=== PATIENT | male | born 1955 | race Caucasian/White ===

== ENCOUNTER 2023-11-28 03:13 | Observation (INO) | payer MEDICARE ==
[2023-11-28] MEDS: NITROGLYCERIN SL TABS 0.4 MG TAB SUBLINGUAL STA (03:31)
[2023-11-28] MEDS: SODIUM CHLORIDE 0.9% 1,000 ML IV STA (03:31)
--- NOTE | 2023-11-28 03:36 | ED ---
General Adult HPI - General Chief complaint: Chest Pain Stated complaint: Chest pain Time Seen by Provider: 11/28/23 03:17 Source: patient, RN notes reviewed, old records reviewed Mode of arrival: EMS Limitations: no limitations - History of Present Illness Initial comments: Patient is a 68-year-old male who presents emergency department with chest pain. Pain began yesterday morning but did improve throughout the day. Awoke and the pain seemed to have gotten worse again. States it is over the left side of his chest and describes as a pressure sensation. Denies radiation, diaphoresis, nausea or vomiting. Denies shortness of breath. Called EMS as the pain got worse this evening. Was given 124 mg of aspirin as well as a nitroglycerin tablet which seemed to help with the pain. States that is currently 1-2 out of 10 at this time. Presents for further evaluation. History of cardiac cath but no stents. History of hypertension and hyperlipidemia. Also history of skin cancer.Has no recent cardiac catheterizations, stating that most recent was probably 8 years ago - Related Data Home Medications Medication Instructions Recorded Confirmed Aspirin EC [Ecotrin Low Dose] 81 mg PO QAM 08/11/16 08/11/16 Cetirizine HCl [Zyrtec] 10 mg PO DAILY 08/11/16 08/11/16 Fluticasone Nasal [place] [Flonase 1 spray EA NOSTRIL DAILY 08/11/16 08/11/16 Nasal [place]] [place]-3 Fatty Acids/Fish Oil [Fish 1 cap PO HS 08/11/16 08/11/16 Oil 1,000 mg Softgel] Omeprazole 20 mg PO DAILY PRN 08/11/16 08/11/16 lisinopriL [Zestril] 10 mg PO HS 08/11/16 08/11/16 Previous Rx's Medication Instructions Recorded Albuterol Inhaler [Ventolin Hfa 1 - 2 puff INHALATION Q6HR PRN #1 08/12/16 Inhaler] inhaler Budesonide-Formot 160-4.5 Mcg 2 puff INHALATION BID #1 inhaler 08/12/16 [Symbicort 160-4.5 Mcg Inhaler] Allergies Allergy/AdvReac Type Severity Reaction Status Date / Time Decongestants AdvReac shaking Uncoded 08/11/16 14:46 Review of Systems ROS Statement: Those systems with pertinent positive or pertinent negative responses have been documented in the HPI. Review of Systems: CONST: Denies fever EYES: Denies blurry vision ENT: Denies nasal congestion C/V: Endorses chest pain RESP: Denies shortness of breath GI: Denies abdominal pain : Denies dysuria SKIN: Denies rash. MSK: Denies joint pain. NEURO: Denies headache ROS Other: All systems not noted in ROS Statement are negative. Past Medical History Past Medical History: Cancer, Chest Pain / Angina, GERD/Reflux, Hyperlipidemia, Hypertension, Pneumonia Additional Past Medical History / Comment(s): BASAL CELL SKIN CANCER REMOVED FROM RT LOWERE EYELID, HYPOGLYCEMEIA-TRIES TO EAT EVERY 3 HOURS, STRESS TTEST , GOUT, "OCC HAND TREMORS", KIDNEY STONE, SINUSITIS. History of Any Multi-Drug Resistant Organisms: None Reported Past Surgical History: Hernia Repair Additional Past Surgical History / Comment(s): EXCISION BASAL CELL SKIN CA RT LOWER EYE LID, RT INGUINAL HERNIA, VASECTOMY, EGD/COLONOSCOPY(POLYP REMOVED WAS BENIGN), SEVERAL SEBACEOUS CYSTS REMOVED FROM SCALP. Past Anesthesia/Blood Transfusion Reactions: No Reported Reaction Past Psychological History: No Psychological Hx Reported Smoking Status: Never smoker Past Alcohol Use History: None Reported Past Drug Use History: None Reported - Past Family History Mother Family Medical History: Cancer, Hypertension Additional Family Medical History / Comment(s): IRREG RYTHYM, BREAST, SKIN, LUNG CANCER. Father Family Medical History: Myocardial Infarction ([place]) Additional Family Medical History / Comment(s): [place] AT AGE 39, FROM CANCER AGE 54(THINKS IT WAS STOMACH CANCER) General Exam - General Exam Comments Initial Comments: General: Appears in no acute distress. HEAD: Normal with no signs of head trauma. EYES: PERRLA, EOMI, conjunctiva normal, no discharge. ENT: Hearing grossly intact, normal oropharynx. RESPIRATORY: Clear breath sounds bilaterally. No wheezes, rales, or rhonchi. C/V: Regular rate and rhythm. S1 and S2 auscultated, no edema, peripheral pulses 2+ and intact throughout ABD: Abd is soft, nontender, nondistended EXT: Normal range of motion, no obvious deformity SKIN: No rashes or lesions observed on exposed skin. NEURO: Alert and oriented x 4. Limitations: no limitations Course Vital Signs 11/28/23 11/28/23 11/28/23 03:14 03:19 03:31 Temperature 98.1 F Pulse Rate 58 L 54 L Pulse Rate [ 58 L Optical Glass Wet Inspector ] Respiratory 18 18 Rate Blood Pressure 184/97 162/94 O2 Sat by Pulse 97 96 Oximetry 11/28/23 05:01 Temperature Pulse Rate 56 L Pulse Rate [ Optical Glass Wet Inspector ] Respiratory 18 Rate Blood Pressure 133/80 O2 Sat by Pulse 95 Oximetry Medical Decision Making - Medical Decision Making Was pt. sent in by a medical professional or institution (, PA, FROG SHAKER, urgent care, hospital, or penitentiary...) When possible be specific @ -No Did you speak to anyone other than the patient for history (EMS, parent, family, police, friend...)? What history was obtained from this source @ -No Did you review nursing and triage notes (agree or disagree)? Why? @ -I reviewed and agree with nursing and triage notes Were old charts reviewed (outside hosp., previous admission, EMS record, old EKG, old radiological studies, urgent care reports/EKG's, penitentiary records)? Report findings @ -Old EKG reviewed from August 2016. Patient has chronic T wave inversion in lead III which is redemonstrated on today's EKG. No obvious acute changes. Differential Diagnosis (chest pain, altered mental status, abdominal pain women, abdominal pain men, vaginal bleeding, weakness, fever, dyspnea, syncope, headache, dizziness, GI bleed, back pain, seizure, CVA, palpatations, mental health, musculoskeletal)? @ -Differential Chest Pain: Stable Angina, Unstable Angina, STEMI, NSTEMI Aortic Dissection, Pneumothorax, Musculoskeletal, Esophageal Spasm GERD, Cholecystitis, Pancreatitis, Zoster, this is not meant to be an all-inclusive list. EKG interpreted by me (3pts min.). @ -As above X-rays interpreted by me (1pt min.). @ -Chest x-ray reveals no obvious acute cardiopulmonary process. CT interpreted by me (1pt min.). @ -None done U/S interpreted by me (1pt. min.). @ -None done What testing was considered but not performed or refused? (CT, X-rays, U/S, labs)? Why? @ -None What meds were considered but not given or refused? Why? @ -None Did you discuss the management of the patient with other professionals (professionals i.e. DrNikolay, PA, FROG SHAKER, lab, RT, psych nurse, social professionals, airport utility worker, teacher, health officer, watch case polisher)? Give summary @ -No Was smoking cessation discussed for >3mins.? @ -No Was critical care preformed (if so, how long)? @ -No Were there social determinants of health that impacted care today? How? (Homelessness, low income, unemployed, alcoholism, drug addiction, transportation, low edu. Level, literacy, decrease access to med. care, half-way, rehab)? @ -No Was there de-escalation of care discussed even if they declined (Discuss DNR or withdrawal of care, Hospice)? DNR status @ -No What co-morbidities impacted this encounter? (DM, HTN, Smoking, COPD, CAD, Cancer, CVA, ARF, Chemo, Hep., AIDS, mental health diagnosis, sleep apnea, morbid obesity)? @ -None Was patient admitted / discharged? Hospital course, mention meds given and route, prescriptions, significant lab abnormalities, going to OR and other pertinent info. @ -Based on the patient's presentation and physical exam, presents emergency department with left-sided chest pain. Improved with nitro from EMS. Also already received 324 mg of aspirin. We will obtain cardiac workup. Patient was in agreement this plan. Vital signs within acceptable limits. EKG shows no signs of acute ischemia. Chronic T wave inversion in lead III seen from August 2016. Nitro tablet essentially resolved the patient's chest pain. Patient will be started on Nitropaste. Has a mild headache at this time and will be given Tylenol. Patient given 1 L fluid bolus. Chest x-ray reveals no obvious acute cardiopulmonary process. Laboratory studies remarkable for an undetectable troponin. Remainder the labs unremarkable. On reevaluation, patient remains asymptomatic on the Nitropaste. I did recommend admission as his heart score is moderate. Patient was in agreement with this plan. I spoke with the admitting physician, Dr. Gutierrez of [facility] who accepted the admi ssion. Undiagnosed new problem with uncertain prognosis? @ -No Drug Therapy requiring intensive monitoring for toxicity (Heparin, Nitro, Insulin, Cardizem)? @ -No Were any procedures done? @ -No Diagnosis/symptom? @ -Chest pain Acute, or Chronic, or Acute on Chronic? @ -Acute Uncomplicated (without systemic symptoms) or Complicated (systemic symptoms)? @ -Complicated Side effects of treatment? @ -None Exacerbation, Progression, or Severe Exacerbation] @ -No Poses a threat to life or bodily function? @ -Potentially, yes - Lab Data Result diagrams: 11/28/23 03:30 11/28/23 03:30 Lab Results 11/28/23 11/28/23 11/28/23 Range/Units 03:30 03:30 03:30 WBC 8.4 (3.8-10.6) k/uL RBC 5.23 (4.30-5.90) m/uL Hgb 15.7 (13.0-17.5) gm/dL Hct 46.2 (39.0-53.0) % MCV 88.3 (80.0-100.0) fL MCH 30.0 (25.0-35.0) pg MCHC 34.0 (31.0-37.0) g/dL RDW 13.5 (11.5-15.5) % Plt Count 163 (150-450) k/uL MPV 12.1 Neutrophils % 63 % Lymphocytes % 28 % Monocytes % 6 % Eosinophils % 1 % Basophils % 1 % Neutrophils # 5.3 (1.3-7.7) k/uL Lymphocytes # 2.3 (1.0-4.8) k/uL Monocytes # 0.5 (0-1.0) k/uL Eosinophils # 0.1 (0-0.7) k/uL Basophils # 0.1 (0-0.2) k/uL PT 10.7 (10.0-12.5) sec INR 1.0 (<1.2) APTT 27.0 (22.0-30.0) sec Sodium 138 (137-145) mmol/L Potassium 3.8 (3.5-5.1) mmol/L Chloride 106 (98-107) mmol/L Carbon Dioxide 23 (22-30) mmol/L Anion Gap 9 mmol/L BUN 16 (9-20) mg/dL Creatinine 0.73 (0.66-1.25) mg/dL Est GFR (CKD-EPI)AfAm >90 (>60 ml/min/1.73 sqM) Est GFR (CKD-EPI)NonAf >90 (>60 ml/min/1.73 sqM) Glucose 148 H (74-99) mg/dL Calcium 9.2 (8.4-10.2) mg/dL Magnesium 1.8 (1.6-2.3) mg/dL Total Bilirubin 0.9 (0.2-1.3) mg/dL AST 31 (17-59) U/L ALT 34 (4-49) U/L Alkaline Phosphatase 100 (38-126) U/L Troponin I (0.000-0.034) ng/mL Total Protein 6.9 (6.3-8.2) g/dL Albumin 4.2 (3.5-5.0) g/dL Lipase 144 (23-300) U/L / Range/Units 03:30 WBC (3.8-10.6) k/uL RBC (4.30-5.90) m/uL Hgb (13.0-17.5) gm/dL Hct (39.0-53.0) % MCV (80.0-100.0) fL MCH (25.0-35.0) pg MCHC (31.0-37.0) g/dL RDW (11.5-15.5) % Plt Count (150-450) k/uL MPV Neutrophils % % Lymphocytes % % Monocytes % % Eosinophils % % Basophils % % Neutrophils # (1.3-7.7) k/uL Lymphocytes # (1.0-4.8) k/uL Monocytes # (0-1.0) k/uL Eosinophils # (0-0.7) k/uL Basophils # (0-0.2) k/uL PT (10.0-12.5) sec INR (<1.2) APTT (22.0-30.0) sec Sodium (137-145) mmol/L Potassium (3.5-5.1) mmol/L Chloride (98-107) mmol/L Carbon Dioxide (22-30) mmol/L Anion Gap mmol/L BUN (9-20) mg/dL Creatinine (0.66-1.25) mg/dL Est GFR (CKD-EPI)AfAm (>60 ml/min/1.73 sqM) Est GFR (CKD-EPI)NonAf (>60 ml/min/1.73 sqM) Glucose (74-99) mg/dL Calcium (8.4-10.2) mg/dL Magnesium (1.6-2.3) mg/dL Total Bilirubin (0.2-1.3) mg/dL AST (17-59) U/L ALT (4-49) U/L Alkaline Phosphatase (38-126) U/L Troponin I <0.012 (0.000-0.034) ng/mL Total Protein (6.3-8.2) g/dL Albumin (3.5-5.0) g/dL Lipase (23-300) U/L - EKG Data -: EKG Interpreted by Me EKG Comments: 12-lead Electrocardiogram Interpretation Note EKG was reviewed and interpreted by myself. 12-lead ECG performed at 0324 is interpreted by me as revealing sinus bradycardia at a rate of 55 beats per minute. Left axis deviation. [place] interval is 184 ms, QRS duration is 113 ms, QTc is 435 ms.. There were no ST or T wave abnormalities to suggest myocardial ischemia or injury. R wave progression across the precordium was satisfactory. By my interpretation this EKG is non-diagnostic for acute ischemia. Disposition Clinical Impression: Chest pain Disposition: ADMITTED IP TO THIS HOSP Condition: Stable Time of Disposition: 04:59
[2023-11-28] MEDS: ACETAMINOPHEN TAB 325 MG TAB PO STA (03:54)
[2023-11-28] MEDS: NITROGLYCERIN OINT 1 INCH/GM PACKET TOPICAL SCH (03:55)
[2023-11-28 04:10] LABS: Basophils # (A) 0.1 k/uL (0-0.2); Basophils % (A) 1 %; Eosinophils # (A) 0.1 k/uL (0-0.7); Eosinophils % (A) 1 %; HCT 46.2 % (39.0-53.0); HGB 15.7 gm/dL (13.0-17.5); Lymphocytes # (A) 2.3 k/uL (1.0-4.8); Lymphocytes % (A) 28 %; MCV 88.3 fL (80.0-100.0); Mean Platelet Volume 12.1; Monocytes # (A) 0.5 k/uL (0-1.0); Monocytes % (A) 6 %; Neutrophils # (A) 5.3 k/uL (1.3-7.7); Neutrophils % (A) 63 %; Platelet Count 163 k/uL (150-450); RBC 5.23 m/uL (4.30-5.90); RDW 13.5 % (11.5-15.5); WBC 8.4 k/uL (3.8-10.6)
[2023-11-28 04:20] LABS: ALT 34 U/L (4-49); AST 31 U/L (17-59); African American GFR (CKD) >90 (>60 ml/min/1.73 sqM); Albumin 4.2 g/dL (3.5-5.0); Alkaline Phosphatase 100 U/L (38-126); Anion Gap 9 mmol/L; Blood Urea Nitrogen 16 mg/dL (9-20); Calcium 9.2 mg/dL (8.4-10.2); Carbon Dioxide 23 mmol/L (22-30); Chloride 106 mmol/L (98-107); Glucose 148 mg/dL (74-99); Lipase 144 U/L (23-300); Magnesium 1.8 mg/dL (1.6-2.3); Non-African American GFR(CKD) >90 (>60 ml/min/1.73 sqM); Potassium 3.8 mmol/L (3.5-5.1); Sodium 138 mmol/L (137-145); Total Bilirubin 0.9 mg/dL (0.2-1.3); Total Protein 6.9 g/dL (6.3-8.2)
[2023-11-28 04:35] LABS: Prothrombin Time 10.7 sec (10.0-12.5)
--- NOTE | 2023-11-28 04:46 | XR ---
EXAMINATION TYPE: XR chest 2V DATE OF EXAM: 11/28/2023 COMPARISON: Chest x-ray August 11, 2016. HISTORY: Chest pain TECHNIQUE: Frontal and lateral views of the chest are obtained. FINDINGS: There is no focal air space opacity, pleural effusion, or pneumothorax seen. The cardiac silhouette size is stable and within normal limits. The osseous structures are intact. IMPRESSION: No acute process. No significant change from prior.
[2023-11-28] MEDS ORDERED: NALOXONE 0.4 MG/ML 1 ML VIAL IV PRN (05:04)
[2023-11-28] MEDS ORDERED: ONDANSETRON 4 MG/2 ML VIAL IVP PRN (05:04)
[2023-11-28] MEDS: HEPARIN SODIUM,PORCINE 5,000 UNIT/ML 1 ML VIAL SQ SCH (10:00)
--- NOTE | 2023-11-28 10:56 | P.CRDCN ---
History of Present Illness History of present illness: HISTORY OF PRESENT ILLNESS: This is a 68-year-old male with a past medical history significant for mild CAD, hypertension, and hyperlipidemia. Patient follows in the office with []. We have been asked to see the patient in consultation for chest pain. Patient examined at the bedside. Patient states he has been feeling unwell for the past few days. He reports hes been having intermittent chest pain for the past couple days. He states the pain usually occurs at rest. He states he woke up this morning with worsening CP. He states the pain radiated into his left arm. He reports some mild SOB for the past 6 months. He came to the ER for further evaluation. He did receive aspirin and nitro with improvement in the pain. He reports mild discomfort at the time of examination. He reports family hx of CAD in both parents and siblings. His dad had a [place] at 35. His brother had CABG at age 50. His other brother had CABG at age 55. His other siblings have required stenting as well. DIAGNOSTICS: - EKG reveals sinus bradycardia with nonspecific ST-T wave changes. - Chest xray negative for acute process. - Laboratory data: WBC 8.4. Hemoglobin 15.7. Platelet count 163. Sodium 138. Potassium 3.8. BUN 16. Creatinine 0.73. Magnesium 1.8. Troponin negative x 1 - Current home cardiac medications include propranolol 10 mg twice a day, losartanhydrochlorothiazide 50-12.5 mg daily, aspirin 81 mg daily. - Cardiac catheterization history: August 2016 revealing mild nonobstructive coronary artery disease and myocardial bridging involving mid LAD REVIEW OF SYSTEMS: At the time of my exam: CONSTITUTIONAL: Denies fever or chills. HEENT: Denies blurred vision, vision changes, or eye pain. Denies hemoptysis CARDIOVASCULAR: Denies chest pain. Denies orthopnea. Denies PND. Denies palpitations RESPIRATORY: Denies shortness of breath. GASTROINTESTINAL: Denies abdominal pain. Denies nausea or vomiting. HEMATOLOGIC: Denies bleeding disorders. GENITOURINARY: Denies any blood in urine. SKIN: Denies pruitis. Denies rash. PHYSICAL EXAM: VITAL SIGNS: Reviewed. GENERAL: Well-developed in no acute distress. HEENT: Head is normocephalic. Pupils are equal, round. Sclerae anicteric. Mucous membranes of the mouth are moist. Neck supple. No JVD or thyromegaly LUNGS: Respirations even and unlabored. Lungs essentially clear to auscultation bilaterally. HEART: Regular rate and rhythm. S1 and S2 heard. ABDOMEN: Soft. Nondistended. Nontender. EXTREMITIES: Normal range of motion. No clubbing or cyanosis. Peripheral pulses intact. No lower extremity edema NEUROLOGIC: Awake and alert. Oriented x 3. ASSESSMENT: Chest pain Shortness of breath x 6 months Mild nonobstructive CAD, per cardiac catheterization 2017 Hypertension Hyperlipidemia Diabetes, diet controlled Significant family history of CAD PLAN: An acute coronary event has been ruled out Resume home cardiac medications Obtain 2D echo to assess cardiac structure and function Patient to undergo cardiolyte stress test today Further recommendations pending patient course Nurse practitioner note has been reviewed by physician. Signing provider agrees with the documented findings, assessment, and plan of care documented by TIRE MAKER as a scribe. Past Medical History Past Medical History: Cancer, Chest Pain / Angina, GERD/Reflux, Hyperlipidemia, Hypertension, Pneumonia Additional Past Medical History / Comment(s): BASAL CELL SKIN CANCER REMOVED FROM RT LOWERE EYELID, HYPOGLYCEMEIA-TRIES TO EAT EVERY 3 HOURS, STRESS TTEST -2015, GOUT, "OCC HAND TREMORS", KIDNEY STONE, SINUSITIS. History of Any Multi-Drug Resistant Organisms: None Reported Past Surgical History: Hernia Repair Additional Past Surgical History / Comment(s): EXCISION BASAL CELL SKIN CA RT LOWER EYE LID, RT INGUINAL HERNIA, VASECTOMY, EGD/COLONOSCOPY(POLYP REMOVED WAS BENIGN), SEVERAL SEBACEOUS CYSTS REMOVED FROM SCALP. Past Anesthesia/Blood Transfusion Reactions: No Reported Reaction Past Psychological History: No Psychological Hx Reported Smoking Status: Never smoker Past Alcohol Use History: None Reported Past Drug Use History: None Reported - Past Family History Mother Family Medical History: Cancer, Hypertension Additional Family Medical History / Comment(s): IRREG RYTHYM, BREAST, SKIN, LUNG CANCER. Father Family Medical History: Myocardial Infarction ([place]) Additional Family Medical History / Comment(s): [place] AT AGE 39, FROM CANCER AGE 54(THINKS IT WAS STOMACH CANCER) Medications and Allergies Home Medications Medication Instructions Recorded Confirmed Type Aspirin EC [Ecotrin Low Dose] 81 mg PO DAILY 08/11/16 11/28/23 History Cetirizine HCl [Zyrtec] 10 mg PO AC-SUPPER 08/11/16 11/28/23 History Fluticasone Nasal [place] [Flonase 1 spray EA NOSTRIL DAILY 08/11/16 11/28/23 History Nasal [place]] [place]-3 Fatty Acids/Fish Oil [Fish 1 cap PO HS 08/11/16 11/28/23 History Oil 1,000 mg Softgel] Omeprazole 20 mg PO DAILY PRN 08/11/16 11/28/23 History Ibuprofen [Motrin Ib] 200 mg PO BID 11/28/23 11/28/23 History L.acidoph,Paracasei, B.lactis 1 cap PO DAILY 11/28/23 11/28/23 History [Probiotic] Losartan-Hctz 50-12.5 mg [Hyzaar 1 tab PO DAILY 11/28/23 11/28/23 History 50-12.5] Oxymetazoline HCl [Mucinex 1 spray EA NOSTRIL QID 11/28/23 11/28/23 History Sinus-Max] Pravastatin Sodium [Pravachol] 10 mg PO HS 11/28/23 11/28/23 History Propranolol [Inderal] 10 mg PO BID 11/28/23 11/28/23 History allopurinoL 300 mg PO DAILY 11/28/23 11/28/23 History Allergies Allergy/AdvReac Type Severity Reaction Status Date / Time Decongestants AdvReac shaking Uncoded 11/28/23 06:44 Physical Exam Vitals: Vital Signs Temp Pulse Pulse Resp BP Pulse Ox 11/28/23 07:21 52 L 18 126/81 96 11/28/23 06:00 58 L 18 134/85 96 11/28/23 05:01 56 L 18 133/80 95 11/28/23 03:31 54 L 18 162/94 96 11/28/23 03:19 58 L 11/28/23 03:14 98.1 F 58 L 18 184/97 97 Intake and Output 11/27/23 11/28/23 11/28/23 22:59 06:59 14:59 Other: Weight 90.718 kg Results 11/28/23 03:30 11/28/23 03:30 Cardiac Enzymes 11/28/23 11/28/23 Range/Units 03:30 03:30 AST 31 (17-59) U/L Troponin I <0.012 (0.000-0.034) ng/mL Coagulation 11/28/23 Range/Units 03:30 PT 10.7 (10.0-12.5) sec APTT 27.0 (22.0-30.0) sec CBC 11/28/23 Range/Units 03:30 WBC 8.4 (3.8-10.6) k/uL RBC 5.23 (4.30-5.90) m/uL Hgb 15.7 (13.0-17.5) gm/dL Hct 46.2 (39.0-53.0) % Plt Count 163 (150-450) k/uL Comprehensive Metabolic Panel 11/28/23 Range/Units 03:30 Sodium 138 (137-145) mmol/L Potassium 3.8 (3.5-5.1) mmol/L Chloride 106 (98-107) mmol/L Carbon Dioxide 23 (22-30) mmol/L BUN 16 (9-20) mg/dL Creatinine 0.73 (0.66-1.25) mg/dL Glucose 148 H (74-99) mg/dL Calcium 9.2 (8.4-10.2) mg/dL AST 31 (17-59) U/L ALT 34 (4-49) U/L Alkaline Phosphatase 100 (38-126) U/L Total Protein 6.9 (6.3-8.2) g/dL Albumin 4.2 (3.5-5.0) g/dL Current Medications Generic Name Dose Route Start Last Admin Trade Name Freq PRN Reason Stop Dose Admin Heparin Sodium (Porcine) 5,000 unit 11/28/23 08:00 Heparin Sodium,Porcine 5,000 Unit/Ml 1 Ml Vial SQ Q8HR CHARLIE Naloxone HCl 0.2 mg 11/28/23 05:04 Naloxone 0.4 Mg/Ml 1 Ml Vial IV Q2M PRN Opioid Reversal Nitroglycerin 0.5 inch 11/28/23 04:00 11/28/23 03:55 Nitroglycerin Oint 1 Inch/Gm Packet TOPICAL 0.5 inch Q8HR CHARLIE Administration Ondansetron HCl 4 mg 11/28/23 05:04 Ondansetron 4 Mg/2 Ml Vial IVP Q8HR PRN Nausea And Vomiting Intake and Output 11/27/23 11/28/23 11/28/23 22:59 06:59 14:59 Other: Weight 90.718 kg 11/28/23 03:30 11/28/23 03:30
[2023-11-28] MEDS: ASPIRIN 81 MG PO SCH (11:29)
[2023-11-28] MEDS: LOSARTAN-HCTZ 50-12.5 MG 1 EACH TAB PO SCH (11:29)
[2023-11-28] MEDS ORDERED: PANTOPRAZOLE 40 MG TABLET PO PRN (12:11)
--- NOTE | 2023-11-28 12:22 | P.HPIM ---
History of Present Illness 68-year-old male came in with complaints of intermittent chest pain moderate severity nonradiating no associated diaphoresis lightheadedness aspirin nitro did improve the pain chest pain is nonexertional chest pain resolved by the time of evaluation. Patient had a dad with [place] at age 34 his brother had a CABG at age 50. Patient EKG showed sinus bradycardia with nonspecific ST-T wave changes chest x-ray did not show any significant abnormality patient had nonobstructive coronary artery disease on the cardiac catheterization that was done in 2017. REVIEW OF SYSTEMS: CONSTITUTIONAL: No fever, no malaise, no fatigue. HEENT: No recent visual problems or hearing problems. Denied any sore throat. CARDIOVASCULAR: No chest pain, orthopnea, PND, no palpitations, no syncope. PULMONARY: No shortness of breath, no cough, no hemoptysis. GASTROINTESTINAL: No diarrhea, no nausea, no vomiting, no abdominal pain. NEUROLOGICAL: No headaches, no weakness, no numbness. HEMATOLOGICAL: Denies any bleeding or petechiae. GENITOURINARY: Denies any burning micturition, frequency, or urgency. MUSCULOSKELETAL/RHEUMATOLOGICAL: Denies any joint pain, swelling, or any muscle pain. ENDOCRINE: Denies any polyuria or polydipsia. The rest of the 14-point review of systems is negative. PHYSICAL EXAMINATION: GENERAL: The patient is alert and oriented x3, not in any acute distress. Well developed, well nourished. HEENT: Pupils are round and equally reacting to light. EOMI. No scleral icterus. No conjunctival pallor. Normocephalic, atraumatic. No pharyngeal erythema. No thyromegaly. CARDIOVASCULAR: S1 and S2 present. No murmurs, rubs, or gallops. PULMONARY: Chest is clear to auscultation, no wheezing or crackles. ABDOMEN: Soft, nontender, nondistended, normoactive bowel sounds. No palpable organomegaly. MUSCULOSKELETAL: No joint swelling or deformity. EXTREMITIES: No cyanosis, clubbing, or pedal edema. NEUROLOGICAL: Gross neurological examination did not reveal any focal deficits. SKIN: No rashes. Assessment and plan -Chest pain rule out acute coronary syndromes patient undergo stress test if that is negative patient will be discharged today -Hypertension patient is on losartan and hydrochlorothiazide combination with which his blood pressure is well-controlled which will be continued patient does not have any significant electrolyte abnormalities with hydrochlorothiazide -Coronary artery disease nonobstructive from cardiac catheterization in 2017 -Hyperlipidemia -Type 2 diabetes mellitus diet-controlled -Gastroesophageal reflux disease DVT prophylaxis: Patient will undergo stress test today if that is negative will be discharged today Past Medical History Past Medical History: Cancer, Chest Pain / Angina, GERD/Reflux, Hyperlipidemia, Hypertension, Pneumonia Additional Past Medical History / Comment(s): BASAL CELL SKIN CANCER REMOVED FROM RT LOWERE EYELID, HYPOGLYCEMEIA-TRIES TO EAT EVERY 3 HOURS, STRESS TTEST 2-2015, GOUT, "OCC HAND TREMORS", KIDNEY STONE, SINUSITIS. History of Any Multi-Drug Resistant Organisms: None Reported Past Surgical History: Hernia Repair Additional Past Surgical History / Comment(s): EXCISION BASAL CELL SKIN CA RT LOWER EYE LID, RT INGUINAL HERNIA, VASECTOMY, EGD/COLONOSCOPY(POLYP REMOVED WAS BENIGN), SEVERAL SEBACEOUS CYSTS REMOVED FROM SCALP. Past Anesthesia/Blood Transfusion Reactions: No Reported Reaction Past Psychological History: No Psychological Hx Reported Smoking Status: Never smoker Past Alcohol Use History: None Reported Past Drug Use History: None Reported - Past Family History Mother Family Medical History: Cancer, Hypertension Additional Family Medical History / Comment(s): IRREG RYTHYM, BREAST, SKIN, LUNG CANCER. Father Family Medical History: Myocardial Infarction (NC) Additional Family Medical History / Comment(s): NC AT AGE 39, FROM CANCER AGE 54(THINKS IT WAS STOMACH CANCER) Medications and Allergies Home Medications Medication Instructions Recorded Confirmed Type Aspirin EC [Ecotrin Low Dose] 81 mg PO DAILY 08/11/16 11/28/23 History Cetirizine HCl [Zyrtec] 10 mg PO AC-SUPPER 08/11/16 11/28/23 History Fluticasone Nasal [place] [Flonase 1 spray EA NOSTRIL DAILY 08/11/16 11/28/23 History Nasal [place]] [place]-3 Fatty Acids/Fish Oil [Fish 1 cap PO HS 08/11/16 11/28/23 History Oil 1,000 mg Softgel] Omeprazole 20 mg PO DAILY PRN 08/11/16 11/28/23 History Ibuprofen [Motrin Ib] 200 mg PO BID 11/28/23 11/28/23 History L.acidoph,Paracasei, B.lactis 1 cap PO DAILY 11/28/23 11/28/23 History [Probiotic] Losartan-Hctz 50-12.5 mg [Hyzaar 1 tab PO DAILY 11/28/23 11/28/23 History 50-12.5] Oxymetazoline HCl [Mucinex 1 spray EA NOSTRIL QID 11/28/23 11/28/23 History Sinus-Max] Pravastatin Sodium [Pravachol] 10 mg PO HS 11/28/23 11/28/23 History Propranolol [Inderal] 10 mg PO BID 11/28/23 11/28/23 History allopurinoL 300 mg PO DAILY 11/28/23 11/28/23 History Allergies Allergy/AdvReac Type Severity Reaction Status Date / Time Decongestants AdvReac shaking Uncoded 11/28/23 06:44 Physical Exam Vitals: Vital Signs Temp Pulse Pulse Resp BP Pulse Ox 11/28/23 11:21 52 L 16 143/79 96 11/28/23 07:21 52 L 18 126/81 96 11/28/23 06:00 58 L 18 134/85 96 11/28/23 05:01 56 L 18 133/80 95 11/28/23 03:31 54 L 18 162/94 96 11/28/23 03:19 58 L 11/28/23 03:14 98.1 F 58 L 18 184/97 97 Intake and Output 11/27/23 11/28/23 11/28/23 22:59 06:59 14:59 Other: Weight 90.718 kg Results CBC & Chem 7: 11/28/23 03:30 11/28/23 03:30 Labs: Abnormal Lab Results - Last 24 Hours (Table) 11/28/23 Range/Units 03:30 Glucose 148 H (74-99) mg/dL
--- NOTE | 2023-11-28 12:23 | P.DS ---
Providers Date of admission: 11/28/23 05:06 Attending physician: Mesfin Gutierrez MD Consults: 11/28/23 05:04 Consult Physician Routine Consulting Provider: [facility] Consult Reason/Comments: chest pain Do you want consulting provider notified?: Yes Primary care physician: Cameron Smith [facility] Course: 68-year-old male came in with complaints of intermittent chest pain moderate s everity nonradiating no associated diaphoresis lightheadedness aspirin nitro did improve the pain chest pain is nonexertional chest pain resolved by the time of evaluation. Patient had a dad with [place] at age 34 his brother had a CABG at age 50. Patient EKG showed sinus bradycardia with nonspecific ST-T wave changes chest x-ray did not show any significant abnormality patient had nonobstructive coronary artery disease on the cardiac catheterization that was done in 2017. PHYSICAL EXAMINATION: GENERAL: The patient is alert and oriented x3, not in any acute distress. Well developed, well nourished. HEENT: Pupils are round and equally reacting to light. EOMI. No scleral icterus. No conjunctival pallor. Normocephalic, atraumatic. No pharyngeal erythema. No thyromegaly. CARDIOVASCULAR: S1 and S2 present. No murmurs, rubs, or gallops. PULMONARY: Chest is clear to auscultation, no wheezing or crackles. ABDOMEN: Soft, nontender, nondistended, normoactive bowel sounds. No palpable organomegaly. MUSCULOSKELETAL: No joint swelling or deformity. EXTREMITIES: No cyanosis, clubbing, or pedal edema. NEUROLOGICAL: Gross neurological examination did not reveal any focal deficits. SKIN: No rashes. Assessment and plan -Chest pain rule out acute coronary syndromes patient undergo stress test if that is negative patient will be discharged today -Hypertension patient is on losartan and hydrochlorothiazide combination with which his blood pressure is well-controlled which will be continued patient does not have any significant electrolyte abnormalities with hydrochlorothiazide -Coronary artery disease nonobstructive from cardiac catheterization in 2017 -Hyperlipidemia -Type 2 diabetes mellitus diet-controlled -Gastroesophageal reflux disease DVT prophylaxis: Patient will undergo stress test today if that is negative will be discharged today Patient Condition at Discharge: Stable Plan - Discharge Summary New Discharge Prescriptions: No Action Omeprazole 20 mg PO DAILY PRN PRN Reason: GERD Fluticasone Nasal [place] [Flonase Nasal [place]] 1 spray EA NOSTRIL DAILY [place]-3 Fatty Acids/Fish Oil [Fish Oil 1,000 mg Softgel] 1 cap PO HS Cetirizine HCl [Zyrtec] 10 mg PO AC-SUPPER Aspirin EC [Ecotrin Low Dose] 81 mg PO DAILY Pravastatin Sodium [Pravachol] 10 mg PO HS Ibuprofen [Motrin Ib] 200 mg PO BID allopurinoL 300 mg PO DAILY Losartan-Hctz 50-12.5 mg [Hyzaar 50-12.5] 1 tab PO DAILY Propranolol [Inderal] 10 mg PO BID Oxymetazoline HCl [Mucinex Sinus-Max] 1 spray EA NOSTRIL QID L.acidoph,Paracasei, B.lactis [Probiotic] 1 cap PO DAILY Discharge Medication List Aspirin EC [Ecotrin Low Dose] 81 mg PO DAILY 08/11/16 [History] Cetirizine HCl [Zyrtec] 10 mg PO AC-SUPPER 08/11/16 [History] Fluticasone Nasal [place] [Flonase Nasal [place]] 1 spray EA NOSTRIL DAILY 08/11/16 [History] [place]-3 Fatty Acids/Fish Oil [Fish Oil 1,000 mg Softgel] 1 cap PO HS 08/11/16 [History] Omeprazole 20 mg PO DAILY PRN 08/11/16 [History] Ibuprofen [Motrin Ib] 200 mg PO BID 11/28/23 [History] L.acidoph,Paracasei, B.lactis [Probiotic] 1 cap PO DAILY 11/28/23 [History] Losartan-Hctz 50-12.5 mg [Hyzaar 50-12.5] 1 tab PO DAILY 11/28/23 [History] Oxymetazoline HCl [Mucinex Sinus-Max] 1 spray EA NOSTRIL QID 11/28/23 [History] Pravastatin Sodium [Pravachol] 10 mg PO HS 11/28/23 [History] Propranolol [Inderal] 10 mg PO BID 11/28/23 [History] allopurinoL 300 mg PO DAILY 11/28/23 [History] Follow up Appointment(s)/Referral(s): Cameron Smith MD [Primary Care Provider] - 1-2 days
--- NOTE | 2023-11-28 13:31 | NM ---
EXAMINATION TYPE: NM stress cardiolite complete DATE OF EXAM: 11/28/2023 COMPARISON: NONE HISTORY: Chest pain TECHNIQUE: After the intravenous administration of 10.8 mCi Tc 99m Sestamibi - Cardiolite resting SP ECT images acquired 56 minutes post injection. At peak stress 26.2 mCi Tc 99m Sestamibi - Stress images obtained 5 minutes post injection The patient was stressed with 0.4mg Lexiscan. FINDINGS: No fixed defects are evident No reversible stress defects on Spect images Wall motion is normal Ejection fraction is calculated to be 67 %. IMPRESSION: 1. No stress-induced ischemic changes. 2. Normal ejection fraction 67%
--- NOTE | 2023-11-28 14:18 | CA ---
Exercise Nuclear Stress Test Report Name: Huseyin Chavez Exam Date: 11/28/2023 12:16 Exam Location: [facility] Ht (in): 70 Wt (lb): 200 BSA: 2.09 Ordering Phys: Caprice Wilkerson Referring Phys: ANKIT Technologist: Bryanna Freitas RDCS Age: 68 Gender: M : 1955 Procedure CPT: Indications: Reflex order-Stress test ICD-10 Codes: Patient History: CP, JAYDE, NUMBNESS FACE/NECK, HTN, CHOL, FAMILY HX, VA, CATH Medications: SEE CHART Meds past 24 hrs: Pretest Chest Pain: STRESS TEST Joshua Protocol Exercise Duration (min:sec): 05:[address] Depressions (mm): Angina Score: Pittman Score: Resting HR (bpm): 67 Peak HR (bpm): 133 Resting BP (mmHg): 148 / 89 Peak BP (mmHg): 244 / 86 MPHR: 151 Target HR: 128 % MPHR: 88 METS: 7.1 Total Dose: Peak Dose: Atropine: Double Product: 48472 BP Response: Stress Termination: Reached target heart rate Stress Symptoms: No chest pain or symptoms Stress Summary: ECG ANALYSIS Resting ECG: Stress ECG: CONCLUSIONS Patient underwent exercise stress Cardiolite with a Joshua protocol treadmill stress test. Patient exercised into Stage 2 for a total of 5 minutes reaching a total of 7.1 METS. Patient's maximum heart rate was 133 which represented 88% age- predicted maximum heart rate. Stress EKG findings: At baseline patient's EKG showed normal sinus rhythm, normal axis, no significant ST or T wave abnormalities. At peak exercise, EKG showed mild 0.[address] depressions in the inferolateral leads which is nondiagnostic. Conclusions: 1. Normal EKG response to exercise without evidence of inducible ischemia. 2. Fair exercise capacity. 3. Nuclear portion to be reported separately Dr. Deshaun Fernando DO (Electronically Signed) Final Date: 28 Nov 2023 14:17
[2023-11-28 16:15] VITALS: BP 163/91; PULSE 60; RESP 18; TEMP 97.9
[2023-11-28] MEDS ORDERED: LORATADINE 10 MG TAB PO SCH (17:30)
[2023-11-28 20:51] LABS: Chol/HDL Ratio 5.81 Ratio; LDL Cholesterol,Calculated 93.9 mg/dL (0.0-131.0)
[2023-11-28] MEDS ORDERED: PRAVASTATIN SODIUM 20 MG TAB PO SCH (21:00)
[2023-11-29] MEDS ORDERED: allopurinoL 300 MG TAB PO SCH (09:00)
[2023-11-29] MEDS ORDERED: FLUTICASONE 50MCG/SPRAY NASAL 16GM EA NOSTRIL SCH (09:00)
== END 2023-11-28 15:29 | disposition home or self-care (01) ==
LOC: EC 03:13 → 6NMEDSUR 05:06
PROVIDERS: ADMIT Internal Medicine; ATTEND Internal Medicine
DX: R07.89 Other chest pain (principal); I10 Essential (primary) hypertension; I25.10 Atherosclerotic heart disease of native coronary artery without angina pectoris; E11.9 Type 2 diabetes mellitus without complications; E78.5 Hyperlipidemia, unspecified; K21.9 Gastro-esophageal reflux disease without esophagitis; Z87.442 Personal history of urinary calculi; Z85.828 Personal history of other malignant neoplasm of skin; Z82.49 Family history of ischemic heart disease and other diseases of the circulatory system; Z80.1 Family history of malignant neoplasm of trachea, bronchus and lung; Z80.0 Family history of malignant neoplasm of digestive organs; Z79.899 Other long term (current) drug therapy; Z79.82 Long term (current) use of aspirin; Z79.51 Long term (current) use of inhaled steroids
CPT/HCPCS: 96360; 96372; 99285; 36415; 93005; 93017; 80061; 80053; 83690; 83735; 84484; 85025; 85610; 85730; 71046; 78452; G0378; A9500; J1644